=== PATIENT | male | born 1985 ===

== ENCOUNTER 2019-05-31 19:17 | Emergency (ER) | payer SELFPAY ==
[2019-05-31] MEDS ORDERED: Ketorolac 15 MG/ML SDV ONE (19:30)
[2019-05-31] MEDS ORDERED: Morphine 4 MG/ML Syringe IVPUSH ONE (19:31)
[2019-05-31] MEDS ORDERED: Ondansetron 4 MG/2 ML SDV ONE (19:31)
[2019-05-31] MEDS ORDERED: Morphine 4 MG/ML Syringe ONE (19:31)
[2019-05-31] MEDS ORDERED: Ondansetron 4 MG/2 ML SDV IVPUSH ONE (19:32)
[2019-05-31] MEDS ORDERED: Ketorolac 30 MG/ML SDV IVPUSH ONE (19:32)
--- NOTE | 2019-05-31 19:47 | CR ---
Left hand: 3 views left hand were obtained. Comparison: No previous hand exam. Bony and soft tissue amputation is seen within the distal 4th finger. Small bony fragments remain within the soft tissues of the distal 4th finger. Fracture is identified within the distal middle phalanx of the 4th finger with mild displacement. Slightly comminuted tuft fracture noted within the distal 5th finger with soft tissue injury. No additional abnormality is seen on left hand exam. Impression: 1. 4th and 5th finger fractures with soft tissue injury as noted above. Diagnostic code #3 This report was dictated in MDT
[2019-05-31] MEDS ORDERED: ceFAZolin 2 GM in Premix Bag 1 BAG IV ONE (19:57)
[2019-05-31] MEDS ORDERED: Diphtheria,Pertussis(Acell),Tetanus Vaccine 0.5 ML Syringe IM ONE (20:06)
[2019-05-31] MEDS ORDERED: Lidocaine 1% 10 ML MDV INJECT ONE (20:24)
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
== END 2019-05-31 21:46 | disposition home or self-care (01) ==
LOC: MW.ED 19:17
DX: S68.623A Partial traumatic transphalangeal amputation of left middle finger, initial encounter (principal); S68.625A Partial traumatic transphalangeal amputation of left ring finger, initial encounter; Z23 Encounter for immunization; W33.01XA Accidental discharge of shotgun, initial encounter
CPT/HCPCS: 12002; 73130; 90471; 90715; 96365; 96375; 99283; J0690; J1885; J2001; J2270; J2405